=== PATIENT | male | born 1955 | race Caucasian/White ===

== ENCOUNTER 2023-08-11 09:33 | Day surgery (SDC) | payer MEDICARE, OTHER, SELFPAY ==
[2023-08-11] VITALS (7 sets, daily range): BP systolic 107–163; BP diastolic 78–88; BMI 34.6
[2023-08-11] MEDS: LOW STRENGTH ASPIRIN 324 MG PO (10:13)
[2023-08-11] MEDS: NSS 318 ML IV (10:13)
[2023-08-11] MEDS: NSS 1000 IV (13:15)
--- NOTE | 2023-08-11 13:17 | ITS.CL.CATH ---
[facility] - Catheterization
Cardiac Catheterization
Procedure Report:
CARDIAC CATHETERIZATION REPORT
Date of Procedure: 08/11/2023
Referring: Tyshawn Riojas MD
Indication: Known CAD with exertional dyspnea
HEMODYNAMIC DATA
AO: 155/88
LV: 155/19
LEFT VENTRICULOGRAPHY: Normal left ventricular wall motion with EF 58%
CORONARY ANGIOGRAPHY
Dominance: Left
Left Main: Normal
LAD: 30-40% ostial stenosis followed by a widely patent stented segment. The mid and distal LAD have trivial luminal disease. The diagonal branches are small with mild luminal disease
Circumflex: Dominant vessel with 20% ostial stenosis. The remainder of the circumflex system has mild luminal irregularities
RCA: Normal nondominant vessel
Closure Device: None-the procedure was performed via the right radial artery. The Lino's test was normal prior to the procedure.
Radiation (mGy): 318
DAP (cm2.Gy): 20.20
Fluoroscopy time: 2.3 minutes
CONCLUSIONS
1: Systemic hypertension
2: Normal left ventricular function with EF 58%
3. Patent proximal LAD stent with otherwise mild residual CAD
4. The patient reported on upon arrival that he has been noncompliant with taking his aspirin for a month prior to today. We explained that his stents are at a small but real risk for very late stent thrombosis and that aspirin 81 mg daily is his
only defense against this potentially lethal complication
Copy to: Tyshawn Riojas MD, Verónica Pemberton MD ([place], [place])
Sandeep Hector MD, [facility], [facility]
== END 2023-08-11 15:53 | disposition home or self-care (01) ==
LOC: CATH 09:33
PROVIDERS: ATTENDING PHYSICIAN Internal Medicine Cardiovascular Disease; FAMILY PHYSICIAN Family Medicine; OTHER PHYSICIAN Internal Medicine Cardiovascular Disease
DX: I25.10 Atherosclerotic heart disease of native coronary artery without angina pectoris (principal); R06.09 Other forms of dyspnea; I10 Essential (primary) hypertension; Z91.199 Patient's noncompliance with other medical treatment and regimen due to unspecified reason; Z95.5 Presence of coronary angioplasty implant and graft
CPT/HCPCS: 93458; C1894; Q9967